=== PATIENT | male | born 1935 | race Caucasian/White ===

== ENCOUNTER 2017-07-29 20:17 | Emergency (ER) | payer OTHER ==
[~2017-07-29] VITALS: Ht 167.6 cm; Wt 68.0 kg
[~2017-07-29 20:17] MED LIST: ASPIR 8181 MG PO; AVODART0.5 MG; BISACODYL SUPP10 MG RECTAL; CALCIUM 500-VI1 EACH PO; CALCIUM OYSTER500 MG; CENTRUM SILVER1 EAC1 PO; CENTRUM SILVER1 EAC4 PO; CEPHALEXIN 500500 M3 PO; CITRATE OF MAG296 ML PO; CO-ENZYME Q-1010 MG PO; COLACE100 MG PO; FISH OIL 1,0001 EAC5 PO; FISHOIL; GLUCOSAMINE S1000 M2 PO; GLUCOSAMINE SU500 MG PO; HM ACETAMINOPH1 EAC1 PO; L-LYSINE600 MG PO; MEDROLDOSEPACK PO; MELATONIN3 MG PO; NAPROSYN500 MG PO; NORCO 5-325 TA1 EACH PO; NORFLEX100 MG PO; PERCOCET 5-3251 EACH PO; PRILOSEC 20 MG20 MG; PROSCAR 5MG TABL5 M1 PO; SIMVASTATIN40 MG; TERBINAFINE HCL30 GM TP; VITAMIN E400 UNIT; [UNRECOGNIZED DRUG - SUPPLY] PO
[2017-07-29 21:50] VITALS: BP 115/60
== END 2017-07-29 21:52 | disposition home or self-care (01) ==
LOC: M.ERS 20:17
DX: S51.812A Laceration without foreign body of left forearm, initial encounter (principal); E78.00 Pure hypercholesterolemia, unspecified; K21.9 Gastro-esophageal reflux disease without esophagitis; Z98.890 Other specified postprocedural states; W18.39XA Other fall on same level, initial encounter; Y93.89 Activity, other specified; Y92.098 Other place in other non-institutional residence as the place of occurrence of the external cause; Y99.8 Other external cause status

== ENCOUNTER 2018-11-12 13:21 | Emergency (ER) | payer OTHER ==
[~2018-11-12] VITALS: Ht 165.1 cm; Wt 69.4 kg
[2018-11-12] MEDS ORDERED: ACETAMINOPHEN-1 EAC1 PO (14:43)
[2018-11-12 14:55] VITALS: BP 109/45
== END 2018-11-12 14:57 | disposition home or self-care (01) ==
LOC: M.ERS 13:21
DX: M79.671 Pain in right foot (principal); L52 Erythema nodosum; E78.00 Pure hypercholesterolemia, unspecified; K21.9 Gastro-esophageal reflux disease without esophagitis; N40.0 Benign prostatic hyperplasia without lower urinary tract symptoms

== ENCOUNTER → 2019-04-10 | Outpatient (CLI) | payer OTHER ==
[~2019-04-10] MED LIST changes: +ACETAMINOPHEN-1 EAC1 PO
== END ==
LOC: M.ULTRA 13:00
DX: E04.2 Nontoxic multinodular goiter (principal); E07.9 Disorder of thyroid, unspecified

== ENCOUNTER → 2019-04-22 | Outpatient (CLI) | payer OTHER ==
--- NOTE | 2019-04-23 14:06 | PATH ---
[address] [address] PATHOLOGY RPT PROCEDURE Name: SELMA SHAY Room: [facility]#: [id number] Admission: 04/22/19 Date of : 33 Discharge: Report #: [id number] Path Case #: [id number] Note [facility] Accession Number: [id number] TESTS RESULT FLAG UNITS REF RANGE LAB Clinician Provided Cytology Information No. of containers..01 Other (Miscellaneous) Source: RT THYROID DIAGNOSIS: 02 RT THYROID NODULE, SUPERIOR/MID, IMAGE-GUIDED FNA. [place] CATEGORY 2: BENIGN. CONSISTENT WITH A BENIGN FOLLICULAR/ADENOMATOID NODULE, WITH BACKGROUND OF ABUNDANT COLLOID. THIS INTERPRETATION INCLUDES A CELL BLOCK. (VANESA:mml; 04/23/2019) Signed out by: 02 Andrea Lewis MD, Pathologist NPI- [id number] Performed by: Jomar Lindquist, Banking Services Officer ([facility]) Gross description: 01 15ML, RED, CLOUDY /LCS 05/19/1840 0000 Local FLAG LEGEND: L-Low Normal,H-High Normal,LL-Alert Low,HH-Alert High <-Panic Low,>-Panic High,A-Abnormal,AA-Critical Abnormal Performed at: [address] [place] [address] Joni Uribe MD, [address] [place] [phone] Andrea Lewis MD, Specimen Comment: A courtesy copy of this report has been sent to [phone], [phone] Specimen Comment: [id number] Specimen Comment: [id number] Specimen Comment: Report sent to / DR PEÑA Performed at: [address], [place], [place] [id number] MD Joni Uribe MD Phone: [phone]
== END | disposition home or self-care (01) ==
LOC: M.ULTRA 08:15
DX: E04.1 Nontoxic single thyroid nodule (principal); Z98.890 Other specified postprocedural states; Z79.899 Other long term (current) drug therapy

== ENCOUNTER 2019-10-22 18:23 | Emergency (ER) | payer OTHER ==
[~2019-10-22] VITALS: Ht 167.6 cm; Wt 67.1 kg
[2019-10-22 19:23] LABS: HEMATOCRIT 40.7 % (42.0-52.0); MCH 30.2 pg (26.0-34.0); MCHC 34.4 g/dL (28.0-37.0); MCV 87.9 fL (80.0-100.0); MPV 8.4 fl. (7.2-11.1); NUCLEATED RBCS 0 /100WBC; PLATELET COUNT* 217 thou/uL (150-400); RBC 4.63 mil/uL (4.50-6.00); RDW-CV 13.4 % (10.5-14.5); WBC 11.9 thou/uL (4.0-11.0)
[2019-10-22 19:32] LABS: CALCIUM 8.9 mg/dL (8.5-10.1); CREATININE 1.3 mg/dL (0.6-1.3); POTASSIUM 3.9 mmol/L (3.5-5.1)
[2019-10-22 19:34] LABS: APTT 26.4 Seconds (25.0-31.3); PROTIME 10.5 Seconds (9.20-11.50)
[2019-10-22 19:37] LABS: ALBUMIN 3.8 g/dL (3.4-5.0); TOTAL BILIRUBIN 0.7 mg/dL (<0.1-1.0); TOTAL PROTEIN 7.4 g/dL (6.4-8.2)
[2019-10-22] MEDS ORDERED: AUGMENTIN 875-1 EACH PO (19:53)
[2019-10-22 20:31] VITALS: BP 130/60
[2019-10-22 20:53] LABS: ABSOLUTE EOSINOPHILS 0.2 thou/uL (0.0-0.7); ABSOLUTE LYMPHOCYTES 0.2 thou/uL (0.8-5.3); ABSOLUTE MONOCYTES 0.7 thou/uL (0.0-1.2); ABSOLUTE NEUTROPHILS 10.7 thou/uL (1.6-8.1); PLATELET ESTIMATE ADEQUATE; TOXIC GRANULATION 2+
== END 2019-10-22 20:15 | disposition home or self-care (01) ==
LOC: M.ERS 18:23
PROVIDERS: Nurse Practitioner Family
DX: S81.831A Puncture wound without foreign body, right lower leg, initial encounter (principal); L08.9 Local infection of the skin and subcutaneous tissue, unspecified; E78.00 Pure hypercholesterolemia, unspecified; K21.9 Gastro-esophageal reflux disease without esophagitis; W55.01XA Bitten by cat, initial encounter; Y93.89 Activity, other specified; Y92.89 Other specified places as the place of occurrence of the external cause; Y99.8 Other external cause status

== ENCOUNTER 2020-03-26 14:34 | Emergency (ER) | payer OTHER ==
[~2020-03-26] VITALS: Ht 167.6 cm; Wt 68.0 kg
[~2020-03-26 14:34] MED LIST changes: +AUGMENTIN 875-1 EACH PO
[2020-03-26] MEDS ORDERED: TRAZODONE HCL50 MG PO (14:48)
[2020-03-26] MEDS ORDERED: CELECOXIB100 MG PO (14:49)
[2020-03-26 15:35] VITALS: BP 121/59
== END 2020-03-26 15:40 | disposition home or self-care (01) ==
LOC: M.ERS 14:34
DX: K40.90 Unilateral inguinal hernia, without obstruction or gangrene, not specified as recurrent (principal); E78.00 Pure hypercholesterolemia, unspecified; K21.9 Gastro-esophageal reflux disease without esophagitis

== ENCOUNTER → 2020-05-11 | Outpatient (CLI) | payer OTHER ==
[~2020-05-11] MED LIST changes: +CELECOXIB100 MG PO; +TRAZODONE HCL50 MG PO
== END ==
LOC: M.ULTRA 14:00
PROVIDERS: ATTEND Otolaryngology
DX: E04.2 Nontoxic multinodular goiter (principal)

== ENCOUNTER 2020-05-29 14:29 | Emergency (ER) | payer OTHER ==
[~2020-05-29] VITALS: Ht 167.6 cm; Wt 67.1 kg
[2020-05-29 15:31] LABS: URINE BILIRUBIN NEGATIVE (Negative); URINE BLOOD NEGATIVE (Negative); URINE CLARITY CLEAR; URINE COLOR YELLOW; URINE GLUCOSE-RANDOM NEGATIVE (Negative); URINE KETONES NEGATIVE (Negative); URINE LEUKOCYTES NEGATIVE (Negative); URINE NITRITE NEGATIVE (Negative); URINE PROTEIN NEGATIVE (Negative); URINE SPECIFIC GRAVITY 1.025 (1.005-1.030); URINE UROBILINOGEN 0.2 E.U./dl (0.2-1.0)
[2020-05-29 15:56] LABS: ABSOLUTE BASOPHILS 0.1 thou/uL (0.0-0.2); ABSOLUTE EOSINOPHILS 0.1 thou/uL (0.0-0.7); ABSOLUTE LYMPHOCYTES 0.7 thou/uL (0.8-5.3); ABSOLUTE MONOCYTES 0.3 thou/uL (0.0-1.2); ABSOLUTE NEUTROPHILS 2.9 thou/uL (1.6-8.1); BASOPHILS 1.4 %; EOSINOPHILS 1.4 %; HEMATOCRIT 41.6 % (42.0-52.0); HEMOGLOBIN 13.8 gm/dL (14.0-18.0); LYMPHOCYTES 17.5 %; MCH 29.4 pg (26.0-34.0); MCHC 33.1 g/dL (28.0-37.0); MCV 88.9 fL (80.0-100.0); MONOCYTES 8.3 %; MPV 7.7 fl. (7.2-11.1); NUCLEATED RBCS 0 /100WBC; PLATELET COUNT* 206 thou/uL (150-400); POLYS 71.4 %; RBC 4.68 mil/uL (4.50-6.00); RDW-CV 12.6 % (10.5-14.5); WBC 4.1 thou/uL (4.0-11.0)
[2020-05-29 16:06] LABS: CALCIUM 9.3 mg/dL (8.5-10.1); CREATININE 1.2 mg/dL (0.6-1.3); POTASSIUM 4.1 mmol/L (3.5-5.1)
[2020-05-29 16:11] LABS: ALBUMIN 3.4 g/dL (3.4-5.0); TOTAL BILIRUBIN 0.3 mg/dL (<0.1-1.0); TOTAL PROTEIN 6.5 g/dL (6.4-8.2)
[2020-05-29 18:55] VITALS: BP 141/56
--- NOTE | 2020-05-30 10:10 | EKG ---
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
== END 2020-05-29 18:55 | disposition home or self-care (01) ==
LOC: M.ERS 14:29
PROVIDERS: Emergency Medicine
DX: K59.00 Constipation, unspecified (principal); K40.90 Unilateral inguinal hernia, without obstruction or gangrene, not specified as recurrent; E78.5 Hyperlipidemia, unspecified; K21.9 Gastro-esophageal reflux disease without esophagitis; Z79.899 Other long term (current) drug therapy

== ENCOUNTER 2020-12-26 00:24 | Emergency (ER) | payer OTHER ==
[~2020-12-26] VITALS: Ht 167.6 cm; Wt 67.1 kg
[2020-12-26 01:54] LABS: HEMATOCRIT 44.2 % (42.0-52.0); HEMOGLOBIN 14.4 gm/dL (14.0-18.0); MCH 28.6 pg (26.0-34.0); MCHC 32.5 g/dL (28.0-37.0); MCV 87.9 fL (80.0-100.0); MPV 8.4 fl. (7.2-11.1); NUCLEATED RBCS 0 /100WBC; PLATELET COUNT* 268 thou/uL (150-400); RBC 5.02 mil/uL (4.50-6.00); WBC 9.2 thou/uL (4.0-11.0)
[2020-12-26 01:55] LABS: CALCIUM 9.7 mg/dL (8.5-10.1); CREATININE 1.4 mg/dL (0.6-1.3); POTASSIUM 4.2 mmol/L (3.5-5.1)
[2020-12-26 02:05] LABS: ALBUMIN 3.9 g/dL (3.4-5.0); TOTAL BILIRUBIN 0.6 mg/dL (<0.1-1.0); TOTAL PROTEIN 7.7 g/dL (6.4-8.2)
[2020-12-26 04:17] LABS: ABSOLUTE BASOPHILS 0.1 thou/uL (0.0-0.2); ABSOLUTE LYMPHOCYTES 0.8 thou/uL (0.8-5.3); ABSOLUTE MONOCYTES 0.4 thou/uL (0.0-1.2); ABSOLUTE NEUTROPHILS 7.9 thou/uL (1.6-8.1); PLATELET ESTIMATE ADEQUATE
[2020-12-26 06:35] VITALS: BP 139/68
--- NOTE | 2020-12-26 10:12 | EKG ---
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: : 1935 Requested By: Teodora Hernández Order Number: [id number] MD: Mitch Hutchison Measurements Intervals [place] Rate: 97 P: 36 [place]: 166 QRS: -9 QRSD: 89 T: 1 QT: 354 QTc: 450 Interpretive Statements Sinus rhythm Borderline T abnormalities, anterior leads Compared to ECG 05/29/2020 14:48:50 T-wave abnormality now present Electronically Signed On 12-26-2020 10:12:04 CDT by Mitch Hutchison [email or web address] <ELECTRONICALLY SIGNED> By: Mitch Hutchison MD, [facility] 12/26/20 1012 0537 0537 Mitch Hutchison MD, [facility] /EPI
== END 2020-12-26 06:35 | disposition short-term general hospital (02) ==
LOC: M.ERS 00:24
PROVIDERS: Personal Emergency Response Attendant
DX: K56.609 Unspecified intestinal obstruction, unspecified as to partial versus complete obstruction (principal); Z20.822 Contact with and (suspected) exposure to COVID-19; K40.90 Unilateral inguinal hernia, without obstruction or gangrene, not specified as recurrent; E78.00 Pure hypercholesterolemia, unspecified; K21.9 Gastro-esophageal reflux disease without esophagitis; N40.0 Benign prostatic hyperplasia without lower urinary tract symptoms; Z90.89 Acquired absence of other organs; Z79.899 Other long term (current) drug therapy

== ENCOUNTER 2021-05-24 15:19 | Emergency (ER) | payer OTHER ==
[~2021-05-24] VITALS: Ht 165.1 cm; Wt 63.5 kg
[2021-05-24 16:50] VITALS: BP 138/76
[2021-05-24] MEDS ORDERED: AUGMENTIN 875-1 EACH PO (17:09)
== END 2021-05-24 16:50 | disposition home or self-care (01) ==
LOC: M.ERS 15:19
DX: S61.452A Open bite of left hand, initial encounter (principal); E78.00 Pure hypercholesterolemia, unspecified; K21.9 Gastro-esophageal reflux disease without esophagitis; Z90.89 Acquired absence of other organs; Z98.890 Other specified postprocedural states; Z79.891 Long term (current) use of opiate analgesic; Z79.899 Other long term (current) drug therapy; W55.01XA Bitten by cat, initial encounter; Y93.89 Activity, other specified; Y92.89 Other specified places as the place of occurrence of the external cause; Y99.8 Other external cause status

== ENCOUNTER → 2021-06-05 | Outpatient (CLI) | payer OTHER | LOC: M.ULTRA 13:00 | PROVIDERS: ATTEND Otolaryngology | DX: E04.2 Nontoxic multinodular goiter (principal) ==